=== PATIENT | male | born 1975 | race Caucasian/White ===

== ENCOUNTER 2016-11-27 21:56 | Emergency (ER) | payer OTHER ==
[~2016-11-27] VITALS: Ht 182.9 cm; Wt 120.0 kg
[~2016-11-27 21:56] MED LIST: METH500T3 PO; NAPR500 PO; Z.0.NO CURRENT MEDS
[2016-11-27 22:12] VITALS: BP 150/105; PULSE 79; RESP 18; TEMP 98.6; O2SAT 100
[2016-11-27] MEDS ORDERED: ALLO100T PO (22:20)
[2016-11-27] MEDS ORDERED: SUBO8MIS SL (22:20)
[2016-11-27] MEDS ORDERED: INDO50CA PO (23:13)
[2016-11-27] MEDS ORDERED: COLC1CAP3 PO (23:13)
[2016-11-27] MEDS ORDERED: HYDROmorphone HCL PF 1 MG/ML VIAL IM ONE (23:15)
[2016-11-27] MEDS ORDERED: DEXAMETHASONE SOD PHOS 20 MG/5 ML VIAL IM ONE (23:15)
[2016-11-27] MEDS ORDERED: COLCHICINE 0.6 MG TAB PO ONE (23:15)
[2016-11-27] MEDS ORDERED: KETOROLAC TROMETHAMINE 60 MG/2 ML (IM) VIAL IM ONE (23:15)
--- NOTE | 2016-11-27 23:43 | PD ---
HPI Chief Complaint: Pain: Acute or Chronic Time Seen by Provider: 22:53 Travel History International Travel<30 days: No Contact w/Intl Traveler<30days: No Traveled to known affect area: No History of Present Illness HPI 41-year-old white male presents to emergency department by EMS for evaluation of knee pain. The patient states that he has a history of gout has been off his allopurinol. He started having a gout flare in his knees which he doubled up on his allopurinol this morning. This has caused his pain to intensify. He states the pain is severe. Patient also takes Suboxone due to a history of opiate dependency. He denies any recent illness. No trauma. He states that this is a same pain he sees had in the past from his gout in his knees. This pain was exacerbated by taking his allopurinol. There is no alleviating factors. PFSH Past Medical History Narrative Medical Opiate dependency, avascular necrosis of both hips, aspiration pneumonia, gout Diabetes: No Patient Takes Glucophage: No Diminished Hearing: No Diverticulitis: Yes Gastrointestinal Disorders: Yes (ENLARGED LIVER) Gout: Yes Musculoskeletal: Yes (BACK PAIN, ) Immunizations Current: No Tetanus Vaccination: < 5 Years Influenza Vaccination: No Past Surgical History Narrative Surgical Mandible fracture Oral Surgery: Yes (JAW) Social History Alcohol Use: Yes (OCCASIONAL) Tobacco Use: Yes ("1/2 pack of cigarettes a day") Substance Use: No Allergies-Medications (Allergen,Severity, Reaction): Coded Allergies: No Known Allergies (Verified , 11/27/16) Reported Meds & Prescriptions Reported Meds & Active Scripts Active Indomethacin 50 Mg Cap 50 Mg PO TID Take with food, milk, or antacids to decrease stomach adverse effects. Colchicine 0.6 Mg Cap 0.6 Mg PO DIRECTED Reported Suboxone Sublingual Film (Buprenorphine-Naloxone Sublingual Film) 8-2 Mg Film 1 Film SL Unique ID number required: Allopurinol 100 Mg Tab 100 Mg PO DAILY Review of Systems General / Constitutional: No: Fever Eyes: No: Visual changes HENT: No: Headaches Cardiovascular: No: Chest Pain or Discomfort Respiratory: No: Shortness of Breath Gastrointestinal: No: Abdominal Pain Genitourinary: No: Dysuria Musculoskeletal: Positive: Arthralgias, Limited ROM, Edema, Pain Skin: No Rash Neurologic: No: Weakness Psychiatric: No: Depression Endocrine: No: Polydipsia Hematologic/Lymphatic: No: Easy Bruising Physical Exam Narrative GENERAL: This is a well-nourished, well-developed patient, in no apparent distress. SKIN: No rashes, ecchymoses or lesions. Warm and dry. HEAD: Atraumatic. Normocephalic. EYES: PERRL, EOMI, no discharge or injection. No scleral icterus. EARS: Clear NOSE: Nasal turbinates appear normal. THROAT: Mucosa pink and moist. Airway patent. NECK: Trachea midline. supple, moves head freely. LUNGS: Clear to auscultation. CV: Regular in rhythm. ABDOMEN: Soft nontender. EXT: No clubbing cyanosis. Patient has inflammatory changes in both knees consistent with gout. His knees are warm, tender and he has associated swelling. He has intact sensation and good distal pulses in his feet. There is no signs of infection. He has significant decreased range of motion due to pain. Data Data Last Documented VS Vital Signs Date Time Temp Pulse Resp B/P (MAP) Pulse Ox O2 Delivery O2 Flow Rate FiO2 11/27/16 22:12 98.6 79 18 150/105 (120) 100 Orders Orders Hydromorphone Pf Inj (Dilaudid Pf Inj) (11/27/16 23:15) Dexamethasone Inj (Decadron Inj) (11/27/16 23:15) Ketorolac Inj (Toradol Inj) (11/27/16 23:15) Colchicine (Colchicine) (11/27/16 23:15) MDM Medical Decision Making Medical Screen Exam Complete: Yes Emergency Medical Condition: Yes Medical Record Reviewed: Yes Differential Diagnosis Differential diagnoses: Arthritis, sprain, strain, septic joint, gout Narrative Course Patient is given Decadron 10 mg IM, Toradol 60 mg IM. Colchicine 0.6 mg by mouth. Patient is on Suboxone and cannot get opiates. This is acute gouty arthritis both knees Diagnosis Primary Impression: Acute gouty arthritis Patient Instructions: General Instructions Additional Instructions: Rest. Stop allopurinol for 1 week and then may restart. Take 1 colchicine tablet every 1-2 hours until pain is relieved or you develop nausea, vomiting, abdominal pain or severe diarrhea. Indocin. Follow-up with your doctor in the next 2-3 days for recheck. Return to the ER for emergencies. Med/Other Pt SpecificInfo: Prescription(s) given Scripts Indomethacin (Indomethacin) 50 Mg Cap 50 MG PO TID, #30 CAP 0 Refills Take with food, milk, or antacids to decrease stomach adverse effects. Prov: CottonJocelyn DO 11/27/16 Colchicine (Colchicine) 0.6 Mg Cap 0.6 MG PO DIRECTED for Gout, #20 CAP 0 Refills Prov: Jocelyn Cotton DO 11/27/16 Disposition: 01 DISCHARGE HOME Condition: Stable Theron Palacio Nov 27, 2016 23:43
== END 2016-11-28 00:04 | disposition home or self-care (01) ==
LOC: NEPD 21:56
DX: M10.9 Gout, unspecified (principal)
CPT/HCPCS: 96372; 99284; J1100; J1885